=== PATIENT | male | born 1985 | race Caucasian/White ===

== ENCOUNTER 2023-07-20 16:59 | Emergency (ER) | payer SELFPAY ==
[2023-07-20 17:04] VITALS: BP 123/80; PULSE 82; RESP 20; TEMP 36.6; O2SAT 96; BMI 28.7
--- NOTE | 2023-07-20 17:12 | XR_ITS ---
The [address] [address] Patient Name: TROY JUÁREZ MRN: [id number] date: 1985 Sex: M Assigned Patient Location: ER Current Patient Location: ER Accession/Order Number: [id number] Exam Date: 07/20/2023 17:20 Report Date: 07/20/2023 17:34 At the request of: ANGELA CHOWDHURY Procedure: XR hand RT min 3V EXAM: XR hand RT min 3V HISTORY: Animal bite COMPARISON: None. TECHNIQUE: 3 views of the right hand were obtained. FINDINGS: There is no evidence of an acute fracture or dislocation. The joint spaces are intact. Deformity of the fifth metacarpal bone indicates an old fracture which has healed. No abnormal soft tissue calcification or radiopaque foreign body is identified. Some air is seen in the soft tissues between the first and second metacarpal bones, indicating soft tissue laceration. XR/XR hand RT min 3V IMPRESSION: No acute fracture or dislocation. The joint spaces are intact. No abnormal soft tissue calcification or radiopaque foreign body is identified. Some air in the soft tissues indicate laceration. Electronically authenticated by: KARYN ODONNELL Date: 07/20/2023 17:34
--- NOTE | 2023-07-20 17:14 | ED_ITS ---
HPI - Animal Bite General Chief Complaint: Animal Bite Stated Complaint: LACERATION RIGHT HAND Time Seen by Provider: 07/20/23 17:12 Source: patient Mode of arrival: walk-in Limitations: no limitations History of Present Illness HPI narrative: patient is a 38-year-old male who presents to the emergency department for the evaluation of an animal bite to the right hand. patient has a pet prairie dog lives in the home with him and his , after introducing a female prairie dog his pet has become more aggressive and bit him on the hand. Bleeding is well- controlled. He is right-hand dominant. Unknown last tetanus. No medications taken prior to arrival. Related Data Home Medications Medication Instructions Recorded Confirmed No Known Home Medications 07/20/23 07/20/23 Previous Rx's Medication Instructions Recorded amoxicillin 875 mg-potassium 1 tab PO Q12H #20 tabs 07/20/23 clavulanate 125 mg tablet hydrocodone 5 mg-acetaminophen 325 1 tab PO Q6H PRN pain #12 tabs 07/20/23 mg tablet ondansetron 4 mg disintegrating 4 mg PO Q6H PRN nausea and 07/20/23 tablet vomiting #12 tabs Allergies Allergy/AdvReac Type Severity Reaction Status Date / Time No Known Drug Allergies Allergy Verified 07/20/23 17:03 Review of Systems ROS Constitutional Denies: fever or chills Cardiovascular Denies: chest pain Respiratory Denies: shortness of breath or cough Gastrointestinal Denies: nausea or vomiting Musculoskeletal Denies: back pain Integumentary/Breast Denies: rash PFSH PFSH Social History Smoking status: Heavy tobacco smoker Exam Narrative Exam Narrative: Gen.: Awake, alert, in no distress Head: Normocephalic, atraumatic ENT: Moist mucous membranes Respiratory: No respiratory distress Extremities: Moves extremities equally, laceration noted in the webspace between the right thumb and right index finger with subcutaneous tissue exposure. No active bleeding. Patient is able to make a fist, normal flexion and extension at the DIP and PIP joints of the finger Psych: Normal mood and affect Neuro: No focal neuro deficit Skin: Warm, dry Constitutional Vital Signs, click to edit/add: Last Vital Signs Temp 98 F 07/20/23 17:04 Pulse 82 07/20/23 17:04 Resp 20 07/20/23 17:04 BP 123/80 07/20/23 17:04 Pulse Ox 96 07/20/23 17:04 O2 Del Method Room Air 07/20/23 17:04 Course Vital Signs Vital signs: Vital Signs Temperature 98 F 07/20/23 17:04 Pulse Rate 82 07/20/23 17:04 Respiratory Rate 20 07/20/23 17:04 Blood Pressure 123/80 07/20/23 17:04 Pulse Oximetry 96 07/20/23 17:04 Oxygen Delivery Method Room Air 07/20/23 17:04 Temperature 98 F 07/20/23 17:04 Pulse Rate 82 07/20/23 17:04 Respiratory Rate 20 07/20/23 17:04 Blood Pressure 123/80 07/20/23 17:04 Pulse Oximetry 96 07/20/23 17:04 Oxygen Delivery Method Room Air 07/20/23 17:04 MDM - Animal Bite MDM Narrative Medical decision making narrative: x-ray of the right hand with no evidence of foreign body or bony abnormalities. Laceration to the right hand was loosely approximated with four sutures, please see procedure note for details. The prairie dog is the patient's pet, no concern for rabies exposure at this time. Patient placed on Augmentin, short course of analgesics and nausea medication. Sutures removed in 8-10 days with PCP or urgent care. Return to the Emergency Room if symptoms change or worsen. Tetanus updated prior to discharge. Laceration repair: Done under sterile conditions. The use of Hiba-Clens prep the area. Local injection with lidocaine 1% was used, approximately 10 cc. The wound was irrigated copiously with normal saline. The wound was explored there was no evidence of foreign material. The laceration was approximated with 4-0 nylon. Four simple interrupted sutures were placed. Patient tolerated the procedure well. The patient was neurovascularly intact post. the patient had bacitracin applied to the laceration and a dry sterile dressing was place. The patient will need to follow-up in the next 8-10 days for removal Medical Records Attestation: I reviewed the patient's medical records. Imaging Data XR hand: Attestation: I have reviewed the pertinent imaging results. Discharge Plan Discharge Chief Complaint: Animal Bite Clinical Impression: Bite by animal, Laceration of right hand Patient Disposition: Home, Self-Care Time of Disposition Decision: 17:56 Condition: Good Prescriptions / Home Meds: New hydrocodone-acetaminophen 5-325 mg tablet 1 tab PO Q6H PRN (Reason: pain) Qty: 12 0RF Rx Instructions: DX: M79.641 amoxicillin-pot clavulanate 875-125 mg tablet 1 tab PO Q12H Qty: 20 0RF ondansetron 4 mg tablet,disintegrating 4 mg PO Q6H PRN (Reason: nausea and vomiting) Qty: 12 0RF No Action No Known Home Medications Instructions: Animal Bite (ED), Laceration (ED) Additional Instructions: Sutures removed in 8-10 days with urgent care Stand Alone Forms: Portal Instructions
[2023-07-20] MEDS: HYDROCODONE/ACET 5-325 MG TABLET 1 TAB PO (17:28)
[2023-07-20] MEDS: LIDOCAINE HCL 1% 100 MG/10 ML MDV INJ (17:28)
[2023-07-20] MEDS: ADACEL DIPH,PERTUSS(ACELL),TET VAC/PF 0.5 ML ADULT SYRINGE IM (17:59)
[2023-07-20] MEDS: WATER FOR IRRIGATION, STERILE 1,000 ML IRRIG.SOLN 1000 ML IRR (18:00)
[2023-07-20] MEDS: BACITRACIN 0.9 GM PACKET 1 PACKET TOPICAL (18:00)
== END 2023-07-20 18:20 | disposition home or self-care (01) ==
PROVIDERS: Emergency Provider Emergency Medicine
DX: S61.411A Laceration without foreign body of right hand, initial encounter (principal); W64.XXXA Exposure to other animate mechanical forces, initial encounter; F17.210 Nicotine dependence, cigarettes, uncomplicated; Z23 Encounter for immunization
CPT/HCPCS: 12001; 73130; 90471; 90715; 99284